=== PATIENT | male | born 1945 | race Caucasian/White ===

== ENCOUNTER 2020-03-18 10:17 | Emergency (ER) | payer MEDICARE, SELFPAY ==
[~2020-03-18] VITALS: Ht 175.3 cm; Wt 99.8 kg
--- NOTE | 2020-03-18 10:17 | NUR ---
PLACED IN BED 7, BIB SQ 151
--- NOTE | 2020-03-18 10:20 | NUR ---
REPORT TO PINEDA GREGORIO. PT IS STABLE AND IN NOW DISTRESS AT THIS TIME. PT IS FROM A BOARD AND CORRECTION LOCATED [place] [address] [place] [address] IN [place]. PT APPEARS TO HAVE RIGHT LOWER LEG WEAKNESS FROM HX OF STROKE. PT IS MOSTLY NON VERBAL.
[2020-03-18 10:59] LABS: BASOPHILS % (AUTO) 0.4 % (0.0-2.0); EOSINOPHILS # (AUTO) 0.1 K/uL (0.0-0.4); EOSINOPHILS % (AUTO) 1.3 % (0.0-4.0); HEMATOCRIT 37.3 % (36-54); HEMOGLOBIN 12.4 g/dL (14.0-18.0); LYMPHOCYTES # (AUTO) 0.6 K/uL (1.0-5.5); LYMPHOCYTES % (AUTO) 13.2 % (20.5-51.5); MEAN CORPUSCULAR HEMOGLOBIN 33 pg (27-31); MEAN CORPUSCULAR HGB CONC 33 % (32-36); MEAN CORPUSCULAR VOLUME 100 fL (79.0-98.0); MONOCYTES # (AUTO) 0.3 K/uL (0.0-1.0); MONOCYTES % (AUTO) 8.2 % (1.7-9.3); NEUTROPHILS # (AUTO) 3.2 K/uL (1.8-7.7); NEUTROPHILS % (AUTO) 76.9 % (40.0-70.0); PLATELET COUNT (AUTO) 151 K/uL (130-430); RED BLOOD CELL COUNT(AUTO) 3.74 MIL/uL (4.2-6.2); RED CELL DISTRIBUTION WIDTH 13.9 % (9.0-15.0); WHITE BLOOD COUNT (AUTO) 4.2 K/uL (4.8-10.8)
[2020-03-18 11:14] LABS: ANION GAP 8 (5-15); CALCIUM 8.9 mg/dL (8.4-11.0); CHLORIDE 102 mmol/L (98-107); CREATININE 1.39 mg/dL (0.55-1.30); GLUCOSE 104 mg/dL (70-99); POTASSIUM 3.9 mmol/L (3.5-5.1); SODIUM SERUM 135 mmol/L (136-145); UREA NITROGEN, BLOOD 13 mg/dL (8-21)
[2020-03-18 11:15] LABS: INR 1.1 (0.80-1.20); PROTHROMBIN TIME 10.9 SECS (9.5-12.5)
[2020-03-18 11:18] LABS: ALANINE AMINOTRANSFERASE 121 U/L (12-78); ALBUMIN 3.3 g/dL (3.4-4.8); ASPARTATE AMINOTRANSFERASE 40 U/L (10-37); C-REACTIVE PROTEIN QUANT 2.4 mg/dL (0-0.5); LACTATE DEHYDROGENASE 168 U/L (85-227); TOTAL BILIRUBIN 0.4 mg/dL (0.0-1.0)
[2020-03-18 11:27] VITALS: BP_SYST 140
--- NOTE | 2020-03-18 12:04 | NUR ---
URINE COLLECTED AND PT CONTINUES ON MONITOR AND STABLE NO DISTRESS. NO RESPITORY DISTRESS AT ANY TIME WHILE IN ER.
[2020-03-18 12:10] LABS: BILIRUBIN,URINE NEGATIVE (NEGATIVE); COLOR,URINE YELLOW (YELLOW); GLUCOSE,URINE NEGATIVE (NEGATIVE); KETONES,URINE NEGATIVE (NEGATIVE); LEUKOCYTE ESTERASE ,URINE NEGATIVE (NEGATIVE); NITRITE, URINE NEGATIVE (NEGATIVE); PROTEIN URINE NEGATIVE (NEGATIVE); UROBILINOGEN,URINE 0.2 (0.2-1.0)
[2020-03-18 12:11] LABS: BLOOD, URINE TRACE (NEGATIVE); CLARITY/URINE SLIGHTLY HAZY (CLEAR)
[2020-03-18 12:19] LABS: BACTERIA,URINE RARE /HPF (None Seen); RBC,URINE 0-3 /HPF (0-3); WBC,URINE 0-3 /HPF (0-3)
--- NOTE | 2020-03-18 14:18 | NUR ---
DR. DAVIS AT BEDSIDE
--- NOTE | 2020-03-18 15:52 | NUR ---
PT HAS CONTINUED TO BE STABLE WITH NO DISTRESS OF ANY KIND. PT CAN GO BACK TO BOARD AND USP. [facility] HAS BEEN NOTIFIED AND HAS SET UP TRANSFER.
--- NOTE | 2020-03-18 15:53 | NUR ---
Patient given written and verbal discharge instructions and verbalizes understanding. ER MD discussed with patient the results and treatment provided. Patient in stable condition. ID arm band removed. Patient educated on pain management and to follow up with PMD. Pain Scale 0/10. Opportunity for questions provided and answered. Medication side effect fact sheet provided.
[2020-03-18 19:03] VITALS: BP_SYST 125
== END 2020-03-18 19:03 | disposition home or self-care (01) ==
LOC: SED 10:17
DX: U07.1 COVID-19 (principal); R06.02 Shortness of breath; Z86.79 Personal history of other diseases of the circulatory system
CPT/HCPCS: 36415; 71045; 80053; 81000; 82550; 82728; 82803; 83605; 83615; 83880; 84484; 85025; 85384; 85610; 85730; 86140; 87040; 87086; 93005; 94002; 99285; U0003